=== PATIENT | female | born 1990 | race Caucasian/White ===

== ENCOUNTER 2018-05-29 19:17 | Emergency (ER) | payer BC ==
[~2018-05-29] VITALS: Ht 165.1 cm; Wt 72.4 kg
[~2018-05-29 19:17] MED LIST: AZITHROMYCIN500 M1 PO; BENTYL20 MG PO; CIPROFLOXACIN500 M1 PO; GLUCOPHAGE500 MG PO; INDOCIN25 MG PO; MEDROL DOSEPAK4 MG PO; METOPROLOL TART50 MG PO; MOBIC7.5 MG PO; NAPROSYN500 MG PO; NEXIUM40 MG PO; NORCO 5/3251 TABLET PO; PRAVASTATIN SOD80 MG PO; PREDNISONE20 MG PO; PRINIVIL20 MG PO; RIFAMPIN300 MG PO; SUBOXONE 4 MG-1 EACH SL; SUBOXONE 8 MG-1 EAC2 SL; TESSALON PERLE100 MG PO; ULTRACET1 TABLET PO; VALIUM5 MG PO; ZANTAC150 MG PO; ZITHROMAX Z-PA250 MG PO; ZOFRAN ODT4 MG PO; ZOFRAN4 MG PO
[2018-05-29] MEDS ORDERED: VALTREX1000 MG PO (21:16)
[2018-05-29] MEDS ORDERED: NORCO 10/3251 TABLET PO (21:16)
[2018-05-29] MEDS ORDERED: MOTRIN800 MG PO (21:16)
[2018-05-29 21:24] VITALS: BP 138/88
== END 2018-05-29 21:28 | disposition home or self-care (01) ==
LOC: EME 19:17
DX: B02.9 Zoster without complications (principal); F17.200 Nicotine dependence, unspecified, uncomplicated
CPT/HCPCS: 99281; 99283